=== PATIENT | female | born 1975 | race Caucasian/White ===

== ENCOUNTER → 2018-08-31 | Outpatient (CLI) | payer OTHER, BC ==
[~2018-08-31] MED LIST: IBU600 MG PO; IRON325 M1 PO; MOTRIN 600600 MG/TAB PO; PERCOCET 325 MG1 TA2 PO; PRENATAL1 TA1 PO; STOOL SOFTENER100 M2 PO
== END ==
LOC: MC.RAD 11:02
DX: Z12.31 Encounter for screening mammogram for malignant neoplasm of breast (principal)

== ENCOUNTER → 2019-09-06 | Outpatient (CLI) | payer OTHER, BC | LOC: MC.RAD 15:35 | DX: Z12.31 Encounter for screening mammogram for malignant neoplasm of breast (principal) ==

== ENCOUNTER → 2021-09-29 | Outpatient (CLI) | payer BC, OTHER | LOC: MC.RAD 07:24 | DX: Z12.31 Encounter for screening mammogram for malignant neoplasm of breast (principal) ==

== ENCOUNTER 2023-02-24 08:34 | Emergency (ER) | payer BC, OTHER ==
[~2023-02-24] VITALS: Ht 160 cm; Wt 107.7 kg
[2023-02-24 08:54] VITALS: TEMP 98.1
[2023-02-24] MEDS ORDERED: HYDROmorphone 0.5 MG/0.5 ML SYRINGE IV ONE ×2 (09:15→09:45)
[2023-02-24] MEDS ORDERED: Lidocaine PF 2% (20 MG/ML) 5 ML VIAL ONE (09:57)
[2023-02-24] MEDS ORDERED: LR 1,000 ML IV SCH (10:00)
[2023-02-24] MEDS ORDERED: Ondansetron 4 MG/2 ML VIAL IV PRN (10:45)
[2023-02-24] MEDS ORDERED: PERCOCET 325 MG1 TA2 PO (11:30)
[2023-02-24 11:45] VITALS: BP 131/71; PULSE 66
== END 2023-02-24 11:46 | disposition home or self-care (01) ==
LOC: COL.ER 08:34
DX: S99.912A Unspecified injury of left ankle, initial encounter (principal); W00.9XXA Unspecified fall due to ice and snow, initial encounter; X50.1XXA Overexertion from prolonged static or awkward postures, initial encounter
CPT/HCPCS: J1170; J2704

== ENCOUNTER → 2023-10-21 | Outpatient (CLI) | payer BC, OTHER | LOC: MC.RAD 07:15 | DX: Z12.31 Encounter for screening mammogram for malignant neoplasm of breast (principal) ==